=== PATIENT | female | born 1960 | race Two or more races ===

== ENCOUNTER 2024-08-29 13:43 | Inpatient (IN) | payer MEDICARE ==
[2024-08-29] VITALS (12 sets, daily range): BP systolic 193–227; BP diastolic 65–108; TEMP 98; O2SAT 93–99
[~2024-08-29] VITALS: Ht 157.5 cm; Wt 59.1 kg
[2024-08-29] MEDS: IPRATROPIUM NEB FS 0.5 MG/2.5 ML AMPUL.NEB NEB ONE (14:18)
[2024-08-29] MEDS: ALBUTEROL FS 2.5 MG/3 ML VIAL.NEB NEB ONE (14:18)
[2024-08-29] MEDS ORDERED: ALBUTEROL FS 2.5 MG/3 ML VIAL.NEB ONE (14:20)
[2024-08-29] MEDS ORDERED: IPRATROPIUM NEB FS 0.5 MG/2.5 ML AMPUL.NEB ONE (14:20)
[2024-08-29 14:44] LABS: BASOPHILS # (AUTO) 0.1 K/uL (0.0-0.2); BASOPHILS % (AUTO) 0.7 % (0.0-2.0); EOSINOPHILS # (AUTO) 0.3 K/uL (0.0-0.7); EOSINOPHILS % (AUTO) 2.3 % (0.0-6.0); HEMATOCRIT 30 % (33-45); HEMOGLOBIN 9.6 g/dL (11.5-14.8); LYMPHOCYTES # (AUTO) 0.7 K/uL (0.8-4.8); MEAN CORPUSCULAR HEMOGLOBIN 27 PG (26.0-33.0); MEAN CORPUSCULAR HGB CONC 32 g/dl (31.0-36.0); MEAN CORPUSCULAR VOLUME 86 fL (82-100); MONOCYTES # (AUTO) 0.5 K/uL (0.1-1.30); MONOCYTES % (AUTO) 4.2 % (2.0-12.0); NEUTROPHILS # (AUTO) 10.1 K/uL (1.8-8.9); NEUTROPHILS % (AUTO) 86.8 % (43.0-81.0); PLATELET COUNT (AUTO) 197 K/uL (150-450); RED CELL DISTRIBUTION WIDTH 16.6 % (11.5-15.0); WHITE BLOOD COUNT (AUTO) 11.7 K/uL (4.3-11.0)
[2024-08-29] MEDS ORDERED: SODIUM BICARBONATE SYR 50 MEQ/50 ML DISP.SYRIN ONE (14:44)
[2024-08-29] MEDS: SODIUM BICARBONATE SYR 50 MEQ/50 ML DISP.SYRIN IV ONE (14:48)
[2024-08-29] MEDS ORDERED: FUROSEMIDE 40 MG/4 ML VIAL ONE (14:51)
[2024-08-29 14:52] LABS: CALCIUM, SERUM 7.6 mg/dL (8.5-10.1); CARBON DIOXIDE 26 mmol/L (21-32); CHLORIDE 96 mmol/L (98-107); CREATININE 7.2 mg/dL (0.6-1.3); GLUCOSE 137 mg/dL (74-106); POTASSIUM 5.5 mmol/L (3.5-5.1); SODIUM SERUM 134 mmol/L (136-145); UREA NITROGEN, BLOOD 54 mg/dL (7-18)
[2024-08-29] MEDS: FUROSEMIDE 40 MG/4 ML VIAL IV ONE (14:53)
[2024-08-29] MEDS: Calcium Gluconate 1GM/10ML 4.65 MEQ in IV NS 0.9% 100 ML IV ONE (15:00)
[2024-08-29 15:34] LABS: ABG BASE EXCESS 2.4 mmol/L (-2.0-3.0); ABG OXYGEN SATURATION 96.9 % (94.0-98.0); ABG PCO2 40.5 mmHg (32.0-45.0); ABG PH 7.438 (7.350-7.450); ABG PO2 92.3 mmHg (83.0-108.0); COHb 0.3 % (0.5-1.5); O2Hb 96.6 % (94.0-97.0); SITE, ABG RIGHT RADIAL
[2024-08-29] MEDS ORDERED: Z GUARD REMEDY 4 OZ OINT TP PRN (18:00)
[2024-08-29] MEDS ORDERED: ONDANSETRON HCL/PF 4 MG/2 ML VIAL IVP PRN (18:00)
[2024-08-29] MEDS ORDERED: ATOR40TA PO (18:52)
[2024-08-29] MEDS ORDERED: POLY15DR31 EACHEYE (18:52)
[2024-08-29] MEDS ORDERED: NIFE90TA61 PO (18:52)
[2024-08-29] MEDS ORDERED: BUME2TAB7 PO (18:52)
[2024-08-29] MEDS ORDERED: LATA2.5D15 EACHEYE (18:52)
[2024-08-29] MEDS ORDERED: CARV25TA PO (18:52)
[2024-08-29] MEDS ORDERED: ASPI-1420 PO (18:52)
[2024-08-29] MEDS ORDERED: DORZ10DR11 EACHEYE (18:52)
[2024-08-29] MEDS ORDERED: CYAN-51 PO (18:52)
[2024-08-29] MEDS ORDERED: HYDR-4076 PO (18:52)
[2024-08-29] MEDS ORDERED: CALC-1239 PO (18:52)
[2024-08-29] MEDS: NITROGLYCERIN PACKET 1 GM PACKET TOP SCH (20:12)
[2024-08-29] MEDS ORDERED: LIDOCAINE 1% INJ 50 ML MDV IJ ONE (20:30)
[2024-08-29] MEDS: LIDOCAINE /MPF 1% VIAL 5 ML VIAL IJ ONE (21:53)
[2024-08-29] MEDS: IV NS 0.9% 250 ML IV PRN (23:55)
[2024-08-29] MEDS: LEVOFLOXACIN 500 MG /D5W 100ML 100 ML IV ONE (23:55)
[2024-08-29] MEDS: HEPARIN SODIUM, PORCINE 5000 UNITS/1 ML VIAL SQ SCH (23:57)
[2024-08-30] VITALS (48 sets, daily range): BP systolic 108–215; BP diastolic 49–108; TEMP 98–98.8; O2SAT 92–98
[2024-08-30] MEDS: hydrALAZINE HCL IV 20 MG VIAL IV PRN (02:03)
[2024-08-30 04:47] LABS: BASOPHILS % (AUTO) 0.5 % (0.0-2.0); EOSINOPHILS # (AUTO) 0.1 K/uL (0.0-0.7); HEMATOCRIT 26 % (33-45); HEMOGLOBIN 8.5 g/dL (11.5-14.8); LYMPHOCYTES # (AUTO) 0.5 K/uL (0.8-4.8); LYMPHOCYTES % (AUTO) 7.9 % (20.0-44.0); MEAN CORPUSCULAR HEMOGLOBIN 28 PG (26.0-33.0); MEAN CORPUSCULAR HGB CONC 33 g/dl (31.0-36.0); MEAN CORPUSCULAR VOLUME 85 fL (82-100); MONOCYTES # (AUTO) 0.5 K/uL (0.1-1.30); MONOCYTES % (AUTO) 6.6 % (2.0-12.0); NEUTROPHILS # (AUTO) 5.8 K/uL (1.8-8.9); PLATELET COUNT (AUTO) 181 K/uL (150-450); RED BLOOD CELL COUNT(AUTO) 3.02 MIL/uL (4.0-5.2); RED CELL DISTRIBUTION WIDTH 16.3 % (11.5-15.0)
[2024-08-30 05:11] LABS: CREATININE 4.4 mg/dL (0.6-1.3); PHOSPHORUS 3.1 mg/dL (2.5-4.9); POTASSIUM 3.9 mmol/L (3.5-5.1)
[2024-08-30] MEDS: PANTOPRAZOLE 40 MG VIAL IV SCH (08:36)
[2024-08-30] MEDS: CARVEDILOL 12.5 MG TABLET PO SCH ×2 (12:35→20:32)
[2024-08-30] MEDS: NIFEDIPINE XL 60 MG TAB.ER.24 PO SCH (12:36)
[2024-08-30] MEDS: hydrALAZINE HCL 25 MG TABLET PO PRN (15:18)
[2024-08-30] MEDS: HEPARIN SODIUM, PORCINE 5000 UNITS/1 ML VIAL SQ SCH (21:11)
[2024-08-31] VITALS (22 sets, daily range): BP systolic 97–150; BP diastolic 51–76; TEMP 97.5–99; O2SAT 94–99
[2024-08-31 05:22] LABS: BASOPHILS % (AUTO) 0.6 % (0.0-2.0); EOSINOPHILS # (AUTO) 0.2 K/uL (0.0-0.7); EOSINOPHILS % (AUTO) 2.3 % (0.0-6.0); HEMATOCRIT 24 % (33-45); HEMOGLOBIN 7.9 g/dL (11.5-14.8); LYMPHOCYTES % (AUTO) 13.4 % (20.0-44.0); MEAN CORPUSCULAR HEMOGLOBIN 29 PG (26.0-33.0); MEAN CORPUSCULAR HGB CONC 33 g/dl (31.0-36.0); MEAN CORPUSCULAR VOLUME 87 fL (82-100); MONOCYTES # (AUTO) 0.8 K/uL (0.1-1.30); MONOCYTES % (AUTO) 10.4 % (2.0-12.0); NEUTROPHILS # (AUTO) 5.5 K/uL (1.8-8.9); NEUTROPHILS % (AUTO) 73.3 % (43.0-81.0); PLATELET COUNT (AUTO) 189 K/uL (150-450); RED BLOOD CELL COUNT(AUTO) 2.77 MIL/uL (4.0-5.2); RED CELL DISTRIBUTION WIDTH 16.9 % (11.5-15.0); WHITE BLOOD COUNT (AUTO) 7.5 K/uL (4.3-11.0)
[2024-08-31 05:35] LABS: ALBUMIN 2.9 g/dL (3.4-5.0); BILIRUBIN,TOTAL 0.3 mg/dL (0.2-1.0); CALCIUM, SERUM 7.6 mg/dL (8.5-10.1); CREATININE 6.6 mg/dL (0.6-1.3); MAGNESIUM 2.3 mg/dL (1.8-2.4); PHOSPHORUS 4.6 mg/dL (2.5-4.9); POTASSIUM 4.2 mmol/L (3.5-5.1); TOTAL PROTEIN, SERUM 6.1 g/dL (6.4-8.2)
[2024-08-31 08:11] LABS: HEPATITIS B SURFACE AB Non Reactive (.)
[2024-08-31] MEDS ORDERED: NIFEDIPINE XL 60 MG TAB.ER.24 PO SCH (09:00)
[2024-08-31] MEDS: PANTOPRAZOLE 40 MG TABLET.DR PO SCH (09:57)
[2024-08-31] MEDS: LEVOFLOXACIN 250 MG /D5W 50 ML 250 MG in PREMIX 1 EA IV SCH (21:21)
[2024-09-01] VITALS: BP 134/53; TEMP 98.2; O2SAT 98
[2024-09-01 04:00] VITALS: BP 147/62; TEMP 98.2; O2SAT 99
[2024-09-01 07:08] LABS: BASOPHILS # (AUTO) 0.1 K/uL (0.0-0.2); BASOPHILS % (AUTO) 0.6 % (0.0-2.0); EOSINOPHILS # (AUTO) 0.3 K/uL (0.0-0.7); EOSINOPHILS % (AUTO) 3.3 % (0.0-6.0); HEMATOCRIT 27 % (33-45); HEMOGLOBIN 8.8 g/dL (11.5-14.8); LYMPHOCYTES # (AUTO) 0.9 K/uL (0.8-4.8); MEAN CORPUSCULAR HEMOGLOBIN 28 PG (26.0-33.0); MEAN CORPUSCULAR HGB CONC 33 g/dl (31.0-36.0); MEAN CORPUSCULAR VOLUME 85 fL (82-100); MONOCYTES # (AUTO) 0.6 K/uL (0.1-1.30); MONOCYTES % (AUTO) 8.1 % (2.0-12.0); PLATELET COUNT (AUTO) 194 K/uL (150-450); RED BLOOD CELL COUNT(AUTO) 3.12 MIL/uL (4.0-5.2); RED CELL DISTRIBUTION WIDTH 16.4 % (11.5-15.0); WHITE BLOOD COUNT (AUTO) 7.9 K/uL (4.3-11.0)
[2024-09-01 07:39] LABS: BILIRUBIN,TOTAL 0.3 mg/dL (0.2-1.0); CALCIUM, SERUM 8.1 mg/dL (8.5-10.1); CREATININE 5.3 mg/dL (0.6-1.3); MAGNESIUM 2.2 mg/dL (1.8-2.4); PHOSPHORUS 4.1 mg/dL (2.5-4.9); POTASSIUM 4.4 mmol/L (3.5-5.1); TOTAL PROTEIN, SERUM 6.8 g/dL (6.4-8.2)
[2024-09-01 08:30] VITALS: BP 147/58; TEMP 98.5; O2SAT 96
[2024-09-01] MEDS: NIFEdipine XL (30MG) 30 MG TAB PO SCH (08:54)
[2024-09-01] MEDS: LIDOCAINE 2% JEL 5 ML TUBE MC ONE (09:30)
[2024-09-01 13:00] VITALS: BP 149/84; TEMP 98.4; O2SAT 97
[2024-09-01] MEDS: LIDOCAINE 2% JEL UROJET 10 ML MM ONE (13:34)
[2024-09-01 16:00] VITALS: BP 156/61; TEMP 98.4; O2SAT 97
[2024-09-01 20:00] VITALS: BP_SYST 145; BP_SYST 160; BP_DIAS 68; TEMP 98.1; TEMP 98.5; O2SAT 97
[2024-09-02] VITALS: BP_SYST 150; BP_SYST 158; BP_DIAS 56; BP_DIAS 75; TEMP 98.1; TEMP 98.3; O2SAT 95
[2024-09-02 04:00] VITALS: BP 142/90; TEMP 98.3; O2SAT 95
[2024-09-02 07:48] LABS: ALBUMIN 2.9 g/dL (3.4-5.0); BASOPHILS # (AUTO) 0.1 K/uL (0.0-0.2); BASOPHILS % (AUTO) 0.8 % (0.0-2.0); BILIRUBIN,TOTAL 0.3 mg/dL (0.2-1.0); CALCIUM, SERUM 8.1 mg/dL (8.5-10.1); CREATININE 6.9 mg/dL (0.6-1.3); EOSINOPHILS # (AUTO) 0.3 K/uL (0.0-0.7); EOSINOPHILS % (AUTO) 3.5 % (0.0-6.0); HEMATOCRIT 27 % (33-45); HEMOGLOBIN 8.9 g/dL (11.5-14.8); LYMPHOCYTES # (AUTO) 1.1 K/uL (0.8-4.8); LYMPHOCYTES % (AUTO) 14.3 % (20.0-44.0); MAGNESIUM 2.4 mg/dL (1.8-2.4); MEAN CORPUSCULAR HEMOGLOBIN 28 PG (26.0-33.0); MEAN CORPUSCULAR HGB CONC 32 g/dl (31.0-36.0); MEAN CORPUSCULAR VOLUME 86 fL (82-100); MONOCYTES # (AUTO) 0.6 K/uL (0.1-1.30); MONOCYTES % (AUTO) 7.4 % (2.0-12.0); NEUTROPHILS # (AUTO) 5.9 K/uL (1.8-8.9); PHOSPHORUS 4.5 mg/dL (2.5-4.9); PLATELET COUNT (AUTO) 197 K/uL (150-450); POTASSIUM 5.1 mmol/L (3.5-5.1); RED CELL DISTRIBUTION WIDTH 16.3 % (11.5-15.0); TOTAL PROTEIN, SERUM 6.6 g/dL (6.4-8.2)
[2024-09-02 08:00] VITALS: BP 166/61; TEMP 98.1; O2SAT 96
[2024-09-02 13:38] VITALS: BP 171/65
[2024-09-02] MEDS ORDERED: NEPRO VAN 237 ML CAN PO PRN (14:30)
[2024-09-02] MEDS ORDERED: LEVOFLOXACIN (250MG) 250 MG TABLET PO SCH (20:00)
== END 2024-09-02 18:05 | disposition home or self-care (01) | DRG 189 ==
LOC: ER 13:46 → ICU 18:35 → TELE 08-31 11:31
PROC: 5A09357 Assistance with Respiratory Ventilation, Less than 24 Consecutive Hours, Continuous Positive Airway Pressure (ICD-10-PCS; principal; 2024-08-29)
PROC: 5A1D70Z Performance of Urinary Filtration, Intermittent, Less than 6 Hours Per Day (ICD-10-PCS; 2024-08-29)
DX: J81.0 Acute pulmonary edema (principal); J96.01 Acute respiratory failure with hypoxia; N18.6 End stage renal disease; I12.0 Hypertensive chronic kidney disease with stage 5 chronic kidney disease or end stage renal disease; I16.0 Hypertensive urgency; E11.22 Type 2 diabetes mellitus with diabetic chronic kidney disease; M89.8X9 Other specified disorders of bone, unspecified site; Z99.2 Dependence on renal dialysis; E87.5 Hyperkalemia; D64.9 Anemia, unspecified; E87.70 Fluid overload, unspecified; Z79.82 Long term (current) use of aspirin; Z79.899 Other long term (current) drug therapy
CPT/HCPCS: 36415; 36600; 71045-TC; 80048-TC; 80053-TC; 82803-TC; 82962-TC; 83735-TC; 84100-TC; 84484-TC; 85025-TC; 86706; 87340; 90935-TC; 93307-TC; 93970-TC; 94799-TC; A4216; A4223; A6403; G0378; J0360; J0610; J1644; J1940; J1956; J2470; J3490; J7030; J7040; J7050

== ENCOUNTER 2024-09-14 01:53 | Inpatient (IN) | payer MEDICARE ==
[~2024-09-14] VITALS: Ht 157.5 cm; Wt 58.1 kg
[~2024-09-14 01:53] MED LIST: ASPI-1420 PO; ATOR40TA PO; BUME2TAB7 PO; CALC-1239 PO; CARV25TA PO; CYAN-51 PO; DORZ10DR11 EACHEYE; HYDR-4076 PO; LATA2.5D15 EACHEYE; NIFE90TA61 PO; POLY15DR31 EACHEYE
[2024-09-14 02:53] LABS: BASOPHILS # (AUTO) 0.1 K/uL (0.0-0.2); BASOPHILS % (AUTO) 0.7 % (0.0-2.0); EOSINOPHILS # (AUTO) 0.3 K/uL (0.0-0.7); EOSINOPHILS % (AUTO) 1.9 % (0.0-6.0); HEMATOCRIT 29 % (33-45); HEMOGLOBIN 9.2 g/dL (11.5-14.8); LYMPHOCYTES # (AUTO) 0.7 K/uL (0.8-4.8); LYMPHOCYTES % (AUTO) 5.3 % (20.0-44.0); MEAN CORPUSCULAR HEMOGLOBIN 28 PG (26.0-33.0); MEAN CORPUSCULAR HGB CONC 32 g/dl (31.0-36.0); MEAN CORPUSCULAR VOLUME 89 fL (82-100); MONOCYTES # (AUTO) 0.6 K/uL (0.1-1.30); MONOCYTES % (AUTO) 4.5 % (2.0-12.0); NEUTROPHILS # (AUTO) 12.4 K/uL (1.8-8.9); NEUTROPHILS % (AUTO) 87.6 % (43.0-81.0); PLATELET COUNT (AUTO) 265 K/uL (150-450); RED BLOOD CELL COUNT(AUTO) 3.27 MIL/uL (4.0-5.2); RED CELL DISTRIBUTION WIDTH 17.2 % (11.5-15.0); WHITE BLOOD COUNT (AUTO) 14.1 K/uL (4.3-11.0)
[2024-09-14] MEDS ORDERED: BUMETANIDE INJ 0.25 MG/ML VIAL ONE (03:05)
[2024-09-14 03:06] LABS: ALBUMIN 3.1 g/dL (3.4-5.0); BILIRUBIN,TOTAL 0.4 mg/dL (0.2-1.0); CALCIUM, SERUM 8.4 mg/dL (8.5-10.1); CREATININE 6.7 mg/dL (0.6-1.3); TOTAL PROTEIN, SERUM 7.5 g/dL (6.4-8.2)
[2024-09-14] MEDS: BUMETANIDE INJ 0.25 MG/ML VIAL IV ONE (03:15)
[2024-09-14] MEDS ORDERED: SODIUM BICARBONATE SYR 50 MEQ/50 ML DISP.SYRIN ONE (03:37)
[2024-09-14] MEDS ORDERED: Calcium Gluconate 0.465 MEQ/ML VIAL IV ONE (03:37)
[2024-09-14] MEDS ORDERED: SODIUM POLYSTYRENE SULFONATE 15 G/60 ML BOTTLE ONE (03:37)
[2024-09-14] MEDS ORDERED: DEXTROSE 50%-WATER 50 ML DISP.SYRIN ONE (03:37)
[2024-09-14] MEDS ORDERED: INSULIN REGULAR, HUMAN 100 UNIT/ML 10 ML VIAL ONE (03:38)
[2024-09-14 03:45] LABS: ABG BASE EXCESS 1.5 mmol/L (-2.0-3.0); ABG OXYGEN SATURATION 94.1 % (94.0-98.0); ABG PCO2 55.6 mmHg (32.0-45.0); ABG PH 7.323 (7.350-7.450); ABG PO2 74.9 mmHg (83.0-108.0); COHb 0.3 % (0.5-1.5); MetHb 0.1 % (0.0-1.5); O2Hb 93.7 % (94.0-97.0); SITE, ABG RIGHT RADIAL
[2024-09-14] MEDS: SODIUM BICARBONATE SYR 50 MEQ/50 ML DISP.SYRIN IV ONE (03:52)
[2024-09-14] MEDS: DEXTROSE 50%-WATER 50 ML DISP.SYRIN IVP ONE (03:53)
[2024-09-14] MEDS: INSULIN REGULAR, HUMAN 100 UNIT/ML 10 ML VIAL IV STA (03:54)
[2024-09-14] MEDS: SODIUM POLYSTYRENE SULF. PWD 15 GM UDC PO STA (04:04)
[2024-09-14] MEDS: Calcium Gluconate 1GM/10ML 4.65 MEQ in IV NS 0.9% 100 ML IV ONE (04:04)
[2024-09-14] MEDS ORDERED: ACETAMINOPHEN 325 MG TABLET PO PRN (07:00)
[2024-09-14] MEDS ORDERED: POLYVINYL ALCOHOL 15 ML BOTTLE EACHEYE PRN (07:00)
[2024-09-14] MEDS ORDERED: hydrALAZINE HCL IV 20 MG VIAL ONE (07:44)
[2024-09-14] MEDS: hydrALAZINE HCL IV 20 MG VIAL IV PRN (07:59)
[2024-09-14] MEDS: CYANOCOBALAMIN 500 MCG TABLET PO SCH (09:00)
[2024-09-14] MEDS: CALCIUM CARB 600MG /VIT D 1 EACH TABLET PO SCH (09:00)
[2024-09-14] MEDS: TIMOLOL MAL/DORZOLAM HCL OPHTH 10 ML BOTTLE EACHEYE SCH (09:00)
[2024-09-14] MEDS ORDERED: HEPARIN SODIUM, PORCINE 5000 UNITS/1 ML VIAL ONE (09:03)
[2024-09-14] MEDS ORDERED: CARVEDILOL 12.5 MG TABLET ONE (09:03)
[2024-09-14] MEDS ORDERED: BUMETANIDE (1 MG) 1 MG TABLET ONE (09:04)
[2024-09-14] MEDS ORDERED: ASPIRIN 81 MG TAB.CHEW ONE (09:04)
[2024-09-14] MEDS: ASPIRIN EC 81 MG TABLET.DR PO SCH (09:21)
[2024-09-14] MEDS: BUMETANIDE (1 MG) 1 MG TABLET PO SCH (09:21)
[2024-09-14] MEDS: NIFEdipine XL (30MG) 30 MG TAB PO SCH (09:22)
[2024-09-14] MEDS: CARVEDILOL 12.5 MG TABLET PO SCH (09:22)
[2024-09-14 12:00] VITALS: BP 117/96; TEMP 98.2; TEMP 98.9; O2SAT 95
[2024-09-14] MEDS: LEVOFLOXACIN (250MG) 250 MG TABLET PO ONE (15:42)
[2024-09-14] MEDS: hydrALAZINE HCL 50 MG TABLET PO SCH (15:43)
[2024-09-14] MEDS: HEPARIN SODIUM, PORCINE 5000 UNITS/1 ML VIAL SQ SCH (15:45)
[2024-09-14 16:00] VITALS: BP 165/61; TEMP 98.9; O2SAT 95
[2024-09-14 20:00] VITALS: BP 154/67; TEMP 97.9; O2SAT 98
[2024-09-14] MEDS: LATANOPROST EYE DROP 0.005% 2.5 ML BOTTLE EACHEYE SCH (21:07)
[2024-09-14] MEDS: ATORVASTATIN 40 MG TABLET PO SCH (21:07)
[2024-09-14] MEDS ORDERED: HEPARIN SODIUM, PORCINE 5000 UNITS/1 ML VIAL SQ SCH (21:30)
[2024-09-15] VITALS: BP 135/54; TEMP 98.2; O2SAT 97
[2024-09-15] MEDS: HEPARIN SODIUM, PORCINE 5000 UNITS/1 ML VIAL SQ SCH (03:24)
[2024-09-15 04:00] VITALS: BP 138/54; TEMP 98.2; O2SAT 96
[2024-09-15 06:51] LABS: BASOPHILS # (AUTO) 0.1 K/uL (0.0-0.2); BASOPHILS % (AUTO) 0.7 % (0.0-2.0); EOSINOPHILS # (AUTO) 0.2 K/uL (0.0-0.7); EOSINOPHILS % (AUTO) 2.8 % (0.0-6.0); HEMATOCRIT 26 % (33-45); HEMOGLOBIN 8.6 g/dL (11.5-14.8); LYMPHOCYTES # (AUTO) 0.9 K/uL (0.8-4.8); LYMPHOCYTES % (AUTO) 11.3 % (20.0-44.0); MEAN CORPUSCULAR HEMOGLOBIN 29 PG (26.0-33.0); MEAN CORPUSCULAR HGB CONC 34 g/dl (31.0-36.0); MEAN CORPUSCULAR VOLUME 85 fL (82-100); MONOCYTES # (AUTO) 0.7 K/uL (0.1-1.30); MONOCYTES % (AUTO) 8.1 % (2.0-12.0); NEUTROPHILS # (AUTO) 6.3 K/uL (1.8-8.9); NEUTROPHILS % (AUTO) 77.1 % (43.0-81.0); PLATELET COUNT (AUTO) 250 K/uL (150-450); RED BLOOD CELL COUNT(AUTO) 3.02 MIL/uL (4.0-5.2); RED CELL DISTRIBUTION WIDTH 16.6 % (11.5-15.0); WHITE BLOOD COUNT (AUTO) 8.1 K/uL (4.3-11.0)
[2024-09-15 07:18] LABS: CALCIUM, SERUM 8.4 mg/dL (8.5-10.1); CREATININE 5.8 mg/dL (0.6-1.3); MAGNESIUM 2.1 mg/dL (1.8-2.4); PHOSPHORUS 3.9 mg/dL (2.5-4.9)
[2024-09-15 08:00] VITALS: BP 154/56; TEMP 99.1; O2SAT 94
[2024-09-15 08:29] LABS: CHOLESTEROL 122 mg/dL (<200); HDL CHOLESTEROL 43 mg/dL (40-60); LDL 68 mg/dL (0-99); TRIGLYCERIDES 114 mg/dL (30-150)
[2024-09-15 08:44] LABS: ABG BASE EXCESS 5.1 mmol/L (-2.0-3.0); ABG OXYGEN SATURATION 96.5 % (94.0-98.0); ABG PCO2 39.5 mmHg (32.0-45.0); ABG PH 7.483 (7.350-7.450); ABG TOTAL HEMOGLOBIN 10.1 G/dL (12.0-16.0); COHb 0.4 % (0.5-1.5); O2Hb 96.1 % (94.0-97.0); SITE, ABG RIGHT RADIAL
[2024-09-15] MEDS ORDERED: DEXTROSE 50%-WATER 50 ML DISP.SYRIN IV PRN (10:30)
[2024-09-15] MEDS: BLOOD SUGAR DIAGNOSTIC 1 EACH STRIP IN SCH (11:18)
[2024-09-15] MEDS: INSULIN REGULAR, HUMAN 100 UNIT/ML 3 ML VIAL SQ PRN (11:19)
[2024-09-15] MEDS: LEVOFLOXACIN (250MG) 250 MG TABLET PO SCH (13:10)
[2024-09-15 16:00] VITALS: BP 164/76; TEMP 97.9; O2SAT 95
[2024-09-15 20:00] VITALS: BP 147/58; TEMP 98; O2SAT 96
[2024-09-16 04:00] VITALS: BP 145/55; TEMP 98.2; O2SAT 95
[2024-09-16 08:00] VITALS: BP 159/62; TEMP 97.9; O2SAT 97
[2024-09-16 10:02] LABS: BASOPHILS # (AUTO) 0.1 K/uL (0.0-0.2); BASOPHILS % (AUTO) 0.9 % (0.0-2.0); EOSINOPHILS # (AUTO) 0.2 K/uL (0.0-0.7); EOSINOPHILS % (AUTO) 1.7 % (0.0-6.0); HEMATOCRIT 28 % (33-45); HEMOGLOBIN 8.9 g/dL (11.5-14.8); LYMPHOCYTES # (AUTO) 0.7 K/uL (0.8-4.8); LYMPHOCYTES % (AUTO) 8.3 % (20.0-44.0); MEAN CORPUSCULAR HEMOGLOBIN 28 PG (26.0-33.0); MEAN CORPUSCULAR HGB CONC 32 g/dl (31.0-36.0); MEAN CORPUSCULAR VOLUME 86 fL (82-100); MONOCYTES # (AUTO) 0.7 K/uL (0.1-1.30); MONOCYTES % (AUTO) 8.3 % (2.0-12.0); NEUTROPHILS # (AUTO) 7.2 K/uL (1.8-8.9); NEUTROPHILS % (AUTO) 80.8 % (43.0-81.0); PLATELET COUNT (AUTO) 232 K/uL (150-450); RED BLOOD CELL COUNT(AUTO) 3.24 MIL/uL (4.0-5.2); RED CELL DISTRIBUTION WIDTH 16.2 % (11.5-15.0); WHITE BLOOD COUNT (AUTO) 8.9 K/uL (4.3-11.0)
[2024-09-16 10:12] LABS: CALCIUM, SERUM 8.3 mg/dL (8.5-10.1); CREATININE 6.1 mg/dL (0.6-1.3); POTASSIUM 3.9 mmol/L (3.5-5.1)
[2024-09-16] MEDS: EPOETIN ALFA (10,000 UNIT) 10,000 UNIT/ML VIAL SQ ONE (12:34)
[2024-09-16 13:21] VITALS: BP 138/75; TEMP 98.2; O2SAT 97
[2024-09-16 16:00] VITALS: BP 147/69; TEMP 98.5; O2SAT 99
[2024-09-16 17:22] VITALS: BP 157/75
== END 2024-09-16 17:30 | disposition home or self-care (01) | DRG 640 ==
LOC: ER 02:30 → TRANSITION 05:28 → TELE1 10:57 → MEDSG1 09-15 10:06
PROC: 5A1D70Z Performance of Urinary Filtration, Intermittent, Less than 6 Hours Per Day (ICD-10-PCS; principal; 2024-09-14)
PROC: 5A09357 Assistance with Respiratory Ventilation, Less than 24 Consecutive Hours, Continuous Positive Airway Pressure (ICD-10-PCS; 2024-09-15)
DX: E87.70 Fluid overload, unspecified (principal); J15.9 Unspecified bacterial pneumonia; N18.6 End stage renal disease; J96.01 Acute respiratory failure with hypoxia; J96.02 Acute respiratory failure with hypercapnia; J81.1 Chronic pulmonary edema; I12.0 Hypertensive chronic kidney disease with stage 5 chronic kidney disease or end stage renal disease; E87.5 Hyperkalemia; Z79.899 Other long term (current) drug therapy; Z91.158 Patient's noncompliance with renal dialysis for other reason; Z99.2 Dependence on renal dialysis; Z79.82 Long term (current) use of aspirin; E11.22 Type 2 diabetes mellitus with diabetic chronic kidney disease; D64.9 Anemia, unspecified; E87.1 Hypo-osmolality and hyponatremia; E78.5 Hyperlipidemia, unspecified; I16.0 Hypertensive urgency; D72.829 Elevated white blood cell count, unspecified
CPT/HCPCS: 36415; 36600; 71045-TC; 80048-TC; 80053-TC; 80061-TC; 82962-TC; 83735-TC; 84100-TC; 84484-TC; 85025-TC; 90935-TC; 94760-TC; 94799-TC; G0378; J0360; J0612; J0885; J1644; J1815; J3490; J7030

== ENCOUNTER 2025-04-10 11:57 | Inpatient (IN) | payer MEDICARE ==
[~2025-04-10] VITALS: Ht 147.3 cm; Wt 59.0 kg
[2025-04-10] VITALS (24 sets, daily range): BP systolic 115–223; BP diastolic 42–96; TEMP 97.5–98.4; O2SAT 100
[2025-04-10] MEDS: ETOMIDATE 2 MG/ML VIAL IV ONE (12:04)
[2025-04-10] MEDS: ROCURONIUM BROMIDE 100 MG/10 ML VIAL IV ONE (12:05)
[2025-04-10] MEDS ORDERED: PROPOFOL 100 ML ONE (12:07)
[2025-04-10] MEDS ORDERED: CALCIUM CHLORIDE 1,000 MG/10 ML DISP.SYRIN ONE (12:08)
[2025-04-10] MEDS ORDERED: SODIUM BICARBONATE SYR 50 MEQ/50 ML DISP.SYRIN ONE (12:08)
[2025-04-10] MEDS: SODIUM BICARBONATE SYR 50 MEQ/50 ML DISP.SYRIN IV ONE (12:10)
[2025-04-10] MEDS ORDERED: Calcium Gluconate 0.465 MEQ/ML VIAL IV ONE (12:10)
[2025-04-10] MEDS ORDERED: NTG 50 MG/D5W250 ML BOTTL 250 ML IV ONE (12:19)
[2025-04-10] MEDS: NTG 50 MG/D5W250 ML BOTTL 250 ML IV PRN (12:35)
[2025-04-10] MEDS: PIPERACILLIN /TAZOBACTAM 3.375 G in IV D5W 50 ML IV ONE (12:40)
[2025-04-10] MEDS: PROPOFOL 100 ML IV ONE (12:40)
[2025-04-10] MEDS: Calcium Gluconate 1GM/10ML 4.65 MEQ in IV NS 0.9% 100 ML IV ONE (12:50)
[2025-04-10 12:52] LABS: PLATELET COUNT (AUTO) 225 K/uL (150-450); RED BLOOD CELL COUNT(AUTO) 3.45 MIL/uL (4.0-5.2); RED CELL DISTRIBUTION WIDTH 19.0 % (11.5-15.0); WHITE BLOOD COUNT (AUTO) 13.3 K/uL (4.3-11.0)
[2025-04-10] MEDS ORDERED: ALBUTEROL FS 2.5 MG/0.5 ML VIAL.NEB NEB PRN (13:00)
[2025-04-10] MEDS ORDERED: DOSING PER PHARMACY-VANCOMYCIN IV XX PRN (13:00)
[2025-04-10] MEDS ORDERED: DOSING PER PHARMACY-CEFEPIME IVPB XX PRN (13:00)
[2025-04-10] MEDS ORDERED: ONDANSETRON HCL/PF 4 MG/2 ML VIAL IVP PRN (13:00)
[2025-04-10] MEDS ORDERED: ACETAMINOPHEN 325 MG TABLET PO PRN (13:00)
[2025-04-10 13:02] LABS: CALCIUM, SERUM 8.8 mg/dL (8.5-10.1); CREATININE 7.4 mg/dL (0.6-1.3); SODIUM SERUM 142 mmol/L (136-145); UREA NITROGEN, BLOOD 47 mg/dL (7-18)
[2025-04-10 13:09] LABS: ASPARTATE AMINOTRANSFERASE 66 U/L (15-37); TOTAL PROTEIN, SERUM 7.3 g/dL (6.4-8.2)
[2025-04-10 13:26] LABS: ABG BASE EXCESS 4.3 mmol/L (-2.0-3.0); ABG OXYGEN SATURATION 99.6 % (94.0-98.0); ABG PCO2 38.3 mmHg (32.0-45.0); ABG PH 7.482 (7.350-7.450); ABG PO2 440.8 mmHg (83.0-108.0); ABG TOTAL HEMOGLOBIN 9.2 G/dL (12.0-16.0); FRACTIONATED INSPIRED OXYGEN 100.0 %; PEEP,BG 5 cm H2O; SET RATE, BG 16.0; SITE, ABG RIGHT RADIAL; VT, ABG 500 mL
[2025-04-10] MEDS: IPRATROPIUM NEB FS 0.5 MG/2.5 ML AMPUL.NEB NEB SCH (13:30)
[2025-04-10] MEDS: ALBUTEROL FS 2.5 MG/3 ML VIAL.NEB NEB SCH (13:30)
[2025-04-10] MEDS ORDERED: SODI10PO PO (13:31)
[2025-04-10] MEDS ORDERED: ALEN70TA80 PO (13:31)
[2025-04-10 13:50] LABS: LACTIC ACID 6.4 mmol/L (0.4-2.0)
[2025-04-10] MEDS: VANCOMYCIN 1 GM in IV D5W 250 ML IV ONE (14:20)
[2025-04-10 15:12] LABS: INR 1.11 (0.91-1.10)
[2025-04-10] MEDS ORDERED: INSULIN REGULAR, HUMAN 100 UNIT/ML 3 ML VIAL SQ PRN (16:00)
[2025-04-10] MEDS ORDERED: DEXTROSE 50%-WATER 50 ML DISP.SYRIN IV PRN (16:00)
[2025-04-10] MEDS: CEFEPIME 1 GM in IV D5W 50 ML IV SCH (16:08)
[2025-04-10] MEDS: PROPOFOL 100 ML IV PRN (16:12)
[2025-04-10] MEDS: BLOOD SUGAR DIAGNOSTIC 1 EACH STRIP IN SCH (17:55)
[2025-04-10] MEDS: hydrALAZINE HCL IV 20 MG VIAL IV PRN (18:19)
[2025-04-10] MEDS ORDERED: NICARDIPINE HCL 50 MG in IV NS 0.9% 230 ML IV PRN (19:00)
[2025-04-10] MEDS: NICARDIPINE IN NACL, ISO-OSM 200 ML IV PRN (19:22)
[2025-04-10] MEDS ORDERED: ETOMIDATE 2 MG/ML VIAL IV ONE (19:45)
[2025-04-10] MEDS: ATORVASTATIN 40 MG TABLET PO SCH (22:02)
[2025-04-10] MEDS: HEPARIN SODIUM, PORCINE 5000 UNITS/1 ML VIAL SQ SCH (22:03)
[2025-04-10] MEDS: LATANOPROST EYE DROP 0.005% 2.5 ML BOTTLE EACHEYE SCH (22:05)
[2025-04-11] VITALS (34 sets, daily range): BP systolic 100–190; BP diastolic 44–80; TEMP 97–98.7; O2SAT 96–100
[2025-04-11 04:45] LABS: PLATELET COUNT (AUTO) 188 K/uL (150-450); RED BLOOD CELL COUNT(AUTO) 2.87 MIL/uL (4.0-5.2); RED CELL DISTRIBUTION WIDTH 18.6 % (11.5-15.0); WHITE BLOOD COUNT (AUTO) 9.2 K/uL (4.3-11.0)
[2025-04-11] MEDS: MORPHINE SULFATE INJ 2 MG/ML DISP.SYRIN IV PRN (05:08)
[2025-04-11 05:12] LABS: ASPARTATE AMINOTRANSFERASE 51.0 U/L (15-37); CALCIUM, SERUM 8.2 mg/dL (8.5-10.1); CREATININE 4.9 mg/dL (0.6-1.3); PHOSPHORUS 1.7 mg/dL (2.5-4.9); SODIUM SERUM 141.0 mmol/L (136-145); TOTAL PROTEIN, SERUM 5.9 g/dL (6.4-8.2); UREA NITROGEN, BLOOD 30.0 mg/dL (7-18)
[2025-04-11] MEDS ORDERED: DC PROPOFOL WHEN EXTUBATED XX PRN (08:00)
[2025-04-11] MEDS: TIMOLOL MAL/DORZOLAM HCL OPHTH 10 ML BOTTLE EACHEYE SCH (08:19)
[2025-04-11] MEDS: ASPIRIN 81 MG TAB.CHEW PO SCH (08:20)
[2025-04-11] MEDS: BUMETANIDE (1 MG) 1 MG TABLET PO SCH (08:20)
[2025-04-11] MEDS: CARVEDILOL 12.5 MG TABLET PO SCH (08:21)
[2025-04-11] MEDS: NIFEdipine XL (30MG) 30 MG TAB PO SCH (08:22)
[2025-04-11] MEDS ORDERED: ASPIRIN EC 81 MG TABLET.DR PO SCH (09:00)
[2025-04-11 09:23] LABS: ABG BASE EXCESS 2.7 mmol/L (-2.0-3.0); ABG OXYGEN SATURATION 95.5 % (94.0-98.0); ABG PCO2 34.3 mmHg (32.0-45.0); ABG PH 7.496 (7.350-7.450); ABG PO2 80.7 mmHg (83.0-108.0); ABG TOTAL HEMOGLOBIN 8.9 G/dL (12.0-16.0); FRACTIONATED INSPIRED OXYGEN 40.0 %; PEEP,BG 5 cm H2O; SET RATE, BG 4.0; SITE, ABG RIGHT RADIAL
[2025-04-11] MEDS: KETOROLAC 0.5% RIGHTEYE SCH (13:13)
[2025-04-11] MEDS: EYE RIGHTEYE SCH (13:13)
[2025-04-11] MEDS: PREDNISOLONE 1% RIGHTEYE SCH (13:13)
[2025-04-11] MEDS ORDERED: LIDOCAINE/PRILOCAINE 1 EA KIT TP PRN (17:30)
[2025-04-11] MEDS: PRILOCAINE TP PRN (17:48)
[2025-04-11] MEDS: LIDOCAINE TP PRN (17:48)
[2025-04-11] MEDS: VANCOMYCIN POST DIALYSIS 500MG IV PRN (20:27)
[2025-04-11] MEDS ORDERED: DEXTROSE 50%-WATER 50 ML DISP.SYRIN IV PRN (22:00)
[2025-04-11] MEDS: BLOOD SUGAR DIAGNOSTIC 1 EACH STRIP IN SCH (22:30)
[2025-04-12] VITALS (22 sets, daily range): BP systolic 126–170; BP diastolic 44–105; TEMP 97–99; O2SAT 97–100
[2025-04-12 04:07] LABS: HEPATITIS B SURFACE AB (QUAL) Non Reactive (.)
[2025-04-12 05:36] LABS: CALCIUM, SERUM 8.2 mg/dL (8.5-10.1); CREATININE 4.5 mg/dL (0.6-1.3); SODIUM SERUM 140.0 mmol/L (136-145); UREA NITROGEN, BLOOD 23.0 mg/dL (7-18)
[2025-04-12] MEDS: CARVEDILOL 12.5 MG TABLET PO SCH (09:01)
[2025-04-12] MEDS: INSULIN REGULAR, HUMAN 100 UNIT/ML 3 ML VIAL SQ PRN (22:42)
[2025-04-13] VITALS (12 sets, daily range): BP systolic 130–157; BP diastolic 52–68; TEMP 97.7–98.4; O2SAT 96–100
[2025-04-13 08:01] LABS: PLATELET COUNT (AUTO) 212 K/uL (150-450); RED BLOOD CELL COUNT(AUTO) 3.43 MIL/uL (4.0-5.2); RED CELL DISTRIBUTION WIDTH 18.3 % (11.5-15.0); WHITE BLOOD COUNT (AUTO) 9.2 K/uL (4.3-11.0)
[2025-04-13 08:08] LABS: CALCIUM, SERUM 8.8 mg/dL (8.5-10.1); CREATININE 4.2 mg/dL (0.6-1.3); PHOSPHORUS 3.7 mg/dL (2.5-4.9); SODIUM SERUM 140.0 mmol/L (136-145); UREA NITROGEN, BLOOD 20.0 mg/dL (7-18)
[2025-04-13 08:59] LABS: ABG BASE EXCESS 2.5 mmol/L (-2.0-3.0); ABG OXYGEN SATURATION 98.1 % (94.0-98.0); ABG PCO2 41.4 mmHg (32.0-45.0); ABG PH 7.432 (7.350-7.450); ABG PO2 110.4 mmHg (83.0-108.0); ABG TOTAL HEMOGLOBIN 10.6 G/dL (12.0-16.0); FLOW, BLOOD GAS 2.00 L/min (0.00-30.00); FRACTIONATED INSPIRED OXYGEN 28.0 %; SITE, ABG RIGHT RADIAL
[2025-04-13] MEDS ORDERED: AMOX-430 PO (11:27)
[2025-04-13] MEDS: POLYVINYL ALCOHOL 15 ML BOTTLE EACHEYE PRN (21:25)
[2025-04-14] VITALS (8 sets, daily range): BP systolic 143–160; BP diastolic 55–61; TEMP 98.3–98.8; O2SAT 97–100
[2025-04-14 07:13] LABS: CALCIUM, SERUM 9.3 mg/dL (8.5-10.1); CREATININE 4.2 mg/dL (0.6-1.3); SODIUM SERUM 141.0 mmol/L (136-145); UREA NITROGEN, BLOOD 24.0 mg/dL (7-18)
== END 2025-04-14 11:17 | disposition home or self-care (01) | DRG 871 ==
LOC: ER 12:05 → ICU 13:00 → TELE1 04-12 11:59
PROVIDERS: ADMIT Internal Medicine; ATTEND Internal Medicine
PROC: 5A1935Z Respiratory Ventilation, Less than 24 Consecutive Hours (ICD-10-PCS; principal; 2025-04-10)
PROC: 0BH18EZ Insertion of Endotracheal Airway into Trachea, Via Natural or Artificial Opening Endoscopic (ICD-10-PCS; 2025-04-10)
PROC: 5A1D70Z Performance of Urinary Filtration, Intermittent, Less than 6 Hours Per Day (ICD-10-PCS; 2025-04-10)
PROC: 05HB33Z Insertion of Infusion Device into Right Basilic Vein, Percutaneous Approach (ICD-10-PCS; 2025-04-10)
DX: A41.9 Sepsis, unspecified organism (principal); G92.8 Other toxic encephalopathy; J96.01 Acute respiratory failure with hypoxia; N18.6 End stage renal disease; J81.0 Acute pulmonary edema; I12.0 Hypertensive chronic kidney disease with stage 5 chronic kidney disease or end stage renal disease; J90 Pleural effusion, not elsewhere classified; J98.11 Atelectasis; I16.0 Hypertensive urgency; R65.20 Severe sepsis without septic shock; Z79.82 Long term (current) use of aspirin; Z79.899 Other long term (current) drug therapy; E11.22 Type 2 diabetes mellitus with diabetic chronic kidney disease; D64.9 Anemia, unspecified; E78.5 Hyperlipidemia, unspecified; E87.5 Hyperkalemia; E87.70 Fluid overload, unspecified; M89.8X9 Other specified disorders of bone, unspecified site; Z99.2 Dependence on renal dialysis; I95.3 Hypotension of hemodialysis; Z91.158 Patient's noncompliance with renal dialysis for other reason
CPT/HCPCS: 31720; 36415; 36600; 71045-TC; 71250-TC; 80048-TC; 80053-TC; 80076-TC; 80202-TC; 82803-TC; 82962-TC; 83605-TC; 83735-TC; 84100-TC; 84484-TC; 85025-TC; 85730-TC; 86706; 87040-TC; 87081-TC; 87340; 90935-TC; 92526; 92611; 94003-TC; 94799-TC; 97530-TC; 97535-TC; 99082-TC; A4223; A6403; G0378; J0360; J0612; J0692; J1644; J1815; J2270; J2543; J3373; J3490; J7030; J7050; J7060

== ENCOUNTER 2025-08-10 07:48 | Inpatient (IN) | payer MEDICARE, OTHER ==
[2025-08-10] VITALS (56 sets, daily range): BP systolic 161–230; BP diastolic 54–82; TEMP 96.7–98.3; O2SAT 91–100
[~2025-08-10] VITALS: Ht 165.1 cm; Wt 56.7 kg
[~2025-08-10 07:48] MED LIST changes: +ALEN70TA80 PO; +AMOX-430 PO; +SODI10PO PO
[2025-08-10 08:28] LABS: CALCIUM, SERUM 8.8 mg/dL (8.5-10.1); CREATININE 4.9 mg/dL (0.6-1.3); PLATELET COUNT (AUTO) 256 K/uL (150-450); RED BLOOD CELL COUNT(AUTO) 3.38 MIL/uL (4.0-5.2); RED CELL DISTRIBUTION WIDTH 18.1 % (11.5-15.0); SODIUM SERUM 139 mmol/L (136-145); UREA NITROGEN, BLOOD 28 mg/dL (7-18); WHITE BLOOD COUNT (AUTO) 13.2 K/uL (4.3-11.0)
[2025-08-10] MEDS ORDERED: NITROGLYCERIN 0.4 MG/TAB BOTTLE ONE (08:29)
[2025-08-10] MEDS ORDERED: NITROGLYCERIN PACKET 1 GM PACKET ONE (08:29)
[2025-08-10 08:31] LABS: INR 1.12 (0.91-1.10)
[2025-08-10] MEDS: NITROGLYCERIN 0.4 MG/TAB BOTTLE SL ONE (08:35)
[2025-08-10] MEDS: NITROGLYCERIN PACKET 1 GM PACKET TOP ONE (08:35)
[2025-08-10 08:41] LABS: ASPARTATE AMINOTRANSFERASE 82 U/L (15-37); TOTAL PROTEIN, SERUM 7.8 g/dL (6.4-8.2)
[2025-08-10] MEDS ORDERED: ACETAMINOPHEN 325 MG TABLET PO PRN (09:00)
[2025-08-10] MEDS ORDERED: DEXTROSE 50%-WATER 50 ML DISP.SYRIN IV PRN (09:00)
[2025-08-10] MEDS ORDERED: MAGNESIUM HYDROXIDE 30 ML UDC PO PRN (09:00)
[2025-08-10] MEDS ORDERED: MAG HYDROX/AL HYDROX/SIMETH 30 ML UDC PO PRN (09:00)
[2025-08-10] MEDS ORDERED: ONDANSETRON HCL/PF 4 MG/2 ML VIAL IVP PRN (09:00)
[2025-08-10 09:08] LABS: ABG BASE EXCESS 1.9 mmol/L (-2.0-3.0); ABG OXYGEN SATURATION 99.6 % (94.0-98.0); ABG PCO2 37.5 mmHg (32.0-45.0); ABG PH 7.456 (7.350-7.450); ABG PO2 517.7 mmHg (83.0-108.0); ABG TOTAL HEMOGLOBIN 8.0 G/dL (12.0-16.0); SET RATE, BG 20.0; SITE, ABG RIGHT RADIAL
[2025-08-10] MEDS ORDERED: NTG 50 MG/D5W250 ML BOTTL 250 ML IV ONE (09:31)
[2025-08-10 09:38] LABS: NT-PRO BNP > 25000 pg/mL (0-125)
[2025-08-10] MEDS: NTG 50 MG/D5W250 ML BOTTL 250 ML IV PRN ×2 (09:41→11:40)
[2025-08-10] MEDS ORDERED: POLYVINYL ALCOHOL 15 ML BOTTLE EACHEYE PRN (10:30)
[2025-08-10] MEDS: PANTOPRAZOLE 40 MG VIAL IV SCH (11:36)
[2025-08-10] MEDS: HEPARIN SODIUM, PORCINE 5000 UNITS/1 ML VIAL SQ SCH (11:38)
[2025-08-10] MEDS: BLOOD SUGAR DIAGNOSTIC 1 EACH STRIP IN SCH (11:39)
[2025-08-10] MEDS ORDERED: TIMOLOL MAL/DORZOLAM HCL OPHTH 10 ML BOTTLE EACHEYE SCH ×2 (17:00)
[2025-08-10] MEDS: CARVEDILOL 12.5 MG TABLET PO SCH (17:06)
[2025-08-10] MEDS: ATORVASTATIN 40 MG TABLET PO SCH (21:09)
[2025-08-10] MEDS: LATANOPROST EYE DROP 0.005% 2.5 ML BOTTLE EACHEYE SCH (21:11)
[2025-08-11] VITALS (65 sets, daily range): BP systolic 125–200; BP diastolic 48–80; TEMP 98.1–98.9; O2SAT 94–100
[2025-08-11] MEDS: hydrALAZINE HCL IV 20 MG VIAL IV PRN (04:15)
[2025-08-11] MEDS: NIFEdipine XL (30MG) 30 MG TAB PO SCH (08:31)
[2025-08-11] MEDS: ASPIRIN EC 81 MG TABLET.DR PO SCH (08:32)
[2025-08-11] MEDS: CYANOCOBALAMIN 500 MCG TABLET PO SCH (08:32)
[2025-08-11] MEDS: CALCIUM CARB 250MG /VITAMIN D 1 UDTAB PO SCH (08:35)
[2025-08-11 10:49] LABS: PLATELET COUNT (AUTO) 221 K/uL (150-450); RED BLOOD CELL COUNT(AUTO) 2.57 MIL/uL (4.0-5.2); RED CELL DISTRIBUTION WIDTH 17.4 % (11.5-15.0); WHITE BLOOD COUNT (AUTO) 10.4 K/uL (4.3-11.0)
[2025-08-11 11:07] LABS: ASPARTATE AMINOTRANSFERASE 25.0 U/L (15-37); CALCIUM, SERUM 7.9 mg/dL (8.5-10.1); CREATININE 4.3 mg/dL (0.6-1.3); PHOSPHORUS 2.2 mg/dL (2.5-4.9); SODIUM SERUM 131.0 mmol/L (136-145); TOTAL PROTEIN, SERUM 6.3 g/dL (6.4-8.2); UREA NITROGEN, BLOOD 23.0 mg/dL (7-18)
[2025-08-11 11:09] LABS: LDL 50.0 mg/dL (0-99)
[2025-08-11 11:19] LABS: LYMPHOCYTES % (MANUAL) 3 % (16-48); MONOCYTES % (MANUAL) 2 % (0-11.0); NEUTROPHILS % (MANUAL) 95 (42-76); PLATELET ESTIMATE ADEQUATE
[2025-08-11] MEDS: CARBOXYMETHYLCELLULOSE SODIUM 1 EA TUBE EACHEYE PRN (16:11)
[2025-08-11] MEDS: TIMOLOL MAL/DORZOLAM HCL OPHTH 10 ML BOTTLE EACHEYE SCH (16:30)
[2025-08-11] MEDS: INSULIN REGULAR, HUMAN 100 UNIT/ML 3 ML VIAL SQ PRN (16:33)
[2025-08-11] MEDS: CARVEDILOL 12.5 MG TABLET PO SCH (20:12)
[2025-08-12] VITALS (20 sets, daily range): BP systolic 126–168; BP diastolic 46–86; TEMP 97.2–99; O2SAT 98–100
[2025-08-12 04:28] LABS: PLATELET COUNT (AUTO) 227 K/uL (150-450); RED BLOOD CELL COUNT(AUTO) 2.95 MIL/uL (4.0-5.2); RED CELL DISTRIBUTION WIDTH 17.3 % (11.5-15.0); WHITE BLOOD COUNT (AUTO) 9.4 K/uL (4.3-11.0)
[2025-08-12 04:42] LABS: ASPARTATE AMINOTRANSFERASE 19.0 U/L (15-37); CALCIUM, SERUM 8.3 mg/dL (8.5-10.1); CREATININE 3.5 mg/dL (0.6-1.3); PHOSPHORUS 3.0 mg/dL (2.5-4.9); SODIUM SERUM 133.0 mmol/L (136-145); TOTAL PROTEIN, SERUM 6.6 g/dL (6.4-8.2); UREA NITROGEN, BLOOD 18.0 mg/dL (7-18)
[2025-08-12] MEDS: ALENDRONATE 70 MG TABLET PO SCH (06:27)
[2025-08-12] MEDS: PANTOPRAZOLE 40 MG TABLET.DR PO SCH (08:22)
[2025-08-13] VITALS: BP 131/60; TEMP 99; O2SAT 98
[2025-08-13 04:00] VITALS: BP 124/61; TEMP 98.7; O2SAT 98
[2025-08-13 06:13] LABS: PLATELET COUNT (AUTO) 219 K/uL (150-450); RED BLOOD CELL COUNT(AUTO) 2.80 MIL/uL (4.0-5.2); RED CELL DISTRIBUTION WIDTH 17.6 % (11.5-15.0); WHITE BLOOD COUNT (AUTO) 7.8 K/uL (4.3-11.0)
[2025-08-13 06:37] LABS: ASPARTATE AMINOTRANSFERASE 19.0 U/L (15-37); CALCIUM, SERUM 8.0 mg/dL (8.5-10.1); CREATININE 5.2 mg/dL (0.6-1.3); PHOSPHORUS 3.5 mg/dL (2.5-4.9); SODIUM SERUM 133.0 mmol/L (136-145); TOTAL PROTEIN, SERUM 6.3 g/dL (6.4-8.2); UREA NITROGEN, BLOOD 36.0 mg/dL (7-18)
[2025-08-13 08:00] VITALS: BP 145/60; TEMP 98.2; O2SAT 96
[2025-08-13 12:51] VITALS: BP 144/52; TEMP 98.2; O2SAT 96
[2025-08-13 18:00] VITALS: BP 128/59; TEMP 98.1; O2SAT 97
== END 2025-08-13 21:15 | disposition home or self-care (01) | DRG 291 ==
LOC: ER 07:55 → ICU 09:48 → TELE1 08-12 17:40 → MEDSG1 08-13 10:00
PROC: 5A09357 Assistance with Respiratory Ventilation, Less than 24 Consecutive Hours, Continuous Positive Airway Pressure (ICD-10-PCS; principal; 2025-08-10)
PROC: 5A1D70Z Performance of Urinary Filtration, Intermittent, Less than 6 Hours Per Day (ICD-10-PCS; 2025-08-10)
DX: I13.2 Hypertensive heart and chronic kidney disease with heart failure and with stage 5 chronic kidney disease, or end stage renal disease (principal); I50.33 Acute on chronic diastolic (congestive) heart failure; J96.01 Acute respiratory failure with hypoxia; N18.6 End stage renal disease; Z99.2 Dependence on renal dialysis; I16.0 Hypertensive urgency; E11.22 Type 2 diabetes mellitus with diabetic chronic kidney disease; D63.8 Anemia in other chronic diseases classified elsewhere; E78.5 Hyperlipidemia, unspecified; Z79.899 Other long term (current) drug therapy; Z79.83 Long term (current) use of bisphosphonates; Z79.82 Long term (current) use of aspirin; D72.829 Elevated white blood cell count, unspecified
CPT/HCPCS: 36415; 36600; 71045-TC; 80048-TC; 80053-TC; 80061-TC; 80076-TC; 82803-TC; 82962-TC; 83735-TC; 83880; 84100-TC; 84484-TC; 85025-TC; 85027-TC; 85730-TC; 90935-TC; 93307-TC; 94799-TC; 99082-TC; A4223; G0378; J0360; J1644; J1815; J2470; J3490

== ENCOUNTER 2025-08-31 14:17 | Emergency (ER) | payer MEDICARE, OTHER ==
[~2025-08-31] VITALS: Ht 165.1 cm; Wt 56.7 kg
[~2025-08-31 14:17] MED LIST changes: -AMOX-430 PO
[2025-08-31 15:18] LABS: PLATELET COUNT (AUTO) 260 K/uL (150-450); RED BLOOD CELL COUNT(AUTO) 3.02 MIL/uL (4.0-5.2); RED CELL DISTRIBUTION WIDTH 18.4 % (11.5-15.0); WHITE BLOOD COUNT (AUTO) 8.4 K/uL (4.3-11.0)
[2025-08-31 15:25] LABS: CALCIUM, SERUM 8.5 mg/dL (8.5-10.1); CREATININE 5.1 mg/dL (0.6-1.3); SODIUM SERUM 144.0 mmol/L (136-145); UREA NITROGEN, BLOOD 36.0 mg/dL (7-18)
[2025-08-31 15:31] LABS: ASPARTATE AMINOTRANSFERASE 15.0 U/L (15-37); TOTAL PROTEIN, SERUM 7.7 g/dL (6.4-8.2)
[2025-08-31 15:33] LABS: INR 1.14 (0.91-1.10)
[2025-08-31 17:55] VITALS: BP 170/74; TEMP 97.9; O2SAT 98
== END 2025-08-31 17:10 | disposition home or self-care (01) ==
LOC: ER 14:20
DX: I13.11 Hypertensive heart and chronic kidney disease without heart failure, with stage 5 chronic kidney disease, or end stage renal disease (principal); N18.6 End stage renal disease; E11.22 Type 2 diabetes mellitus with diabetic chronic kidney disease; Z79.82 Long term (current) use of aspirin; Z79.899 Other long term (current) drug therapy; Z99.2 Dependence on renal dialysis
CPT/HCPCS: 36415; 71045-TC; 80048-TC; 80076-TC; 85025-TC; 85730-TC; 86850-TC